=== PATIENT | male | born 1955 ===

== ENCOUNTER 2018-07-12 12:50 | Inpatient (IN) | payer SELFPAY ==
[~2018-07-12] VITALS: Ht 188 cm; Wt 95.3 kg
[2018-07-12 13:36] LABS: BASOPHILS % (AUTO) 0.5 % (0.0-2.0); EOSINOPHILS % (AUTO) 0.2 % (0.0-7.0); HEMATOCRIT 42.3 % (36.7-47.1); HEMOGLOBIN 14.9 g/dL (12.5-16.3); LYMPHOCYTES # (AUTO) 1.1 K/uL (20.0-40.0); LYMPHOCYTES % (AUTO) 16.8 % (20.5-51.5); MEAN CORPUSCULAR HEMOGLOBIN 32.4 uug (23.8-33.4); MEAN CORPUSCULAR HGB CONC 35 g/dL (32.5-36.3); MEAN CORPUSCULAR VOLUME 92.1 fL (73.0-96.2); MONOCYTES % (AUTO) 14.3 % (0.0-11.0); NEUTROPHILS # (AUTO) 4.6 K/uL (1.8-8.9); NEUTROPHILS % (AUTO) 68.2 % (38.5-71.5); PLATELET COUNT (AUTO) 207 K/uL (152-348); RED BLOOD CELL COUNT(AUTO) 4.59 MIL/uL (4.06-5.63); WHITE BLOOD COUNT (AUTO) 6.7 K/uL (3.6-10.2)
[2018-07-12 13:40] LABS: CREATININE 0.9 mg/dL (0.6-1.3)
[2018-07-12 13:46] LABS: BILIRUBIN,DIRECT 0.1 mg/dL (0.0-0.2); BILIRUBIN,TOTAL 0.5 mg/dL (0.2-1.0); TOTAL PROTEIN, SERUM 7.3 g/dL (6.4-8.2)
--- NOTE | 2018-07-12 14:10 | NUR ---
PATIENT BEING SEEN BY DOCTOR JU ALREADY.
--- NOTE | 2018-07-12 14:30 | NUR ---
PATIENT STATES HE HAS BEEN HEALTHY AND HAS NOT SEEN A DOCTOR SINCE THE
--- NOTE | 2018-07-12 15:44 | NUR ---
NEGATIVE ORTHOSTATIC BP. PATIENT STATES STILL FEELS LIGHT HEADED DIZZY UPON STANDING. WHILE LAYING DOWN FEELS FINE.
--- NOTE | 2018-07-12 15:51 | NUR ---
CALLED YVETTE MENDOZA RN FOR ADMISSION. TELE BED FOR SYNCOPE. DOCTOR MONTEMAYOR IS ADMITTING
[2018-07-12] MEDS ORDERED: MAGNESIUM HYDROXIDE 30 ML LIQUID UDC PO PRN ×2 (16:15→17:00)
[2018-07-12] MEDS ORDERED: ACETAMINOPHEN 325 MG TABLET PO PRN ×2 (16:15→17:00)
[2018-07-12] MEDS ORDERED: Z GUARD REMEDY PASTE 57 GM TUBE TOP PRN ×2 (16:15→17:00)
[2018-07-12] MEDS ORDERED: IV NS 1000 ML 1,000 ML IV SCH (16:15)
[2018-07-12] MEDS ORDERED: ONDANSETRON 4 MG/2 ML VIAL IV PRN ×2 (16:15→17:00)
[2018-07-12] MEDS ORDERED: HYDROCODONE/APAP 5-325MG TABLET PO PRN ×2 (16:15→17:00)
--- NOTE | 2018-07-12 16:24 | NUR ---
SPOKE TO ELIOT TILLMAN FOR REPORT. PLACED NEW IV ON PATIENT PRIOR TO ADMITTING
--- NOTE | 2018-07-12 17:09 | NUR ---
ADMITTED FROM HOME VIA ER WITH ADMITTING DX OF NEAR SYNCOPE SECONDARY TO GENERALIZED. AWAKE ALERT AND ORIENTED X3 NO SS OF SEVERE PAIN OR DISTRESS. ROUTINE ADMISSION ASSESSMENT INITIATED. DR MONTEMAYOR WILL BE NOTIFIED OF ADMISSION. SR ON MONITOR
[2018-07-12 17:31] VITALS: BP 114/57
[2018-07-12 17:34] VITALS: BP 94/55
[2018-07-12 17:35] VITALS: BP 100/63
[2018-07-12] MEDS: IV NS 1000 ML 1,000 ML IV SCH (18:17)
[2018-07-12 19:05] VITALS: BP 93/54
--- NOTE | 2018-07-12 19:45 | NUR ---
RECEIVED PATIENT IN BED, ALERT ORIENTED, NO SOB NO CHEST PAIN, TELE MONITOR SINUS RHYTHM AT THIS TIME. ASSISTED WITH TOILETING, CONT TO MONITOR.
[2018-07-12 23:41] VITALS: BP 99/54
[2018-07-13 03:29] VITALS: BP 99/63
--- NOTE | 2018-07-13 06:29 | NUR ---
PATIENT SLEPT MOST OF THE NIGHT, NO SOB NO CHEST PAIN NOTED, TELE MONITOR SINUS RHYTHM MOST OF THE NIGHT, WITH SHORT EPISODES OF AFIB BUT UNSUSTAINABLE, ASSESSED PATIENT FOR PAIN DISCOMFORT, CHEST PAIN, BUT SAID HE FEELS MARIA ELENA AT THIS TIME, WILL CONTINUE TO MONITOR, WILL ENDORSE TO NEXT SHIFT.
[2018-07-13] MEDS: IV NS 1000 ML 1,000 ML IV SCH (06:50)
--- NOTE | 2018-07-13 08:00 | NUR ---
Discussed plan of care with patient re: fall precaution, pain management, and to notify nursing for any c/o dizziness. Pt agreeable with plan of care. Call light is within reach.
[2018-07-13 10:20] LABS: EOSINOPHILS # (AUTO) 0.1 K/uL (0.0-0.7); HEMATOCRIT 38.7 % (36.7-47.1); HEMOGLOBIN 13.4 g/dL (12.5-16.3); LYMPHOCYTES # (AUTO) 1.3 K/uL (20.0-40.0); LYMPHOCYTES % (AUTO) 28.6 % (20.5-51.5); MEAN CORPUSCULAR HGB CONC 35 g/dL (32.5-36.3); MONOCYTES # (AUTO) 0.7 K/uL (2.0-10.0)
[2018-07-13 10:23] LABS: CREATININE 0.9 mg/dL (0.6-1.3); MAGNESIUM 1.8 mg/dL (1.8-2.4); PHOSPHOROUS 2.8 mg/dL (2.5-4.9)
[2018-07-13 10:34] LABS: BASOPHILS % (AUTO) 0.6 % (0.0-2.0); EOSINOPHILS % (AUTO) 1.7 % (0.0-7.0); MEAN CORPUSCULAR HEMOGLOBIN 32.7 uug (23.8-33.4); MEAN CORPUSCULAR VOLUME 94.3 fL (73.0-96.2); MONOCYTES % (AUTO) 14.3 % (0.0-11.0); NEUTROPHILS # (AUTO) 2.6 K/uL (1.8-8.9); NEUTROPHILS % (AUTO) 54.8 % (38.5-71.5); PLATELET COUNT (AUTO) 196 K/uL (152-348)
[2018-07-13 10:35] LABS: WHITE BLOOD COUNT (AUTO) 4.7 K/uL (3.6-10.2)
[2018-07-13 11:30] VITALS: BP 112/70
--- NOTE | 2018-07-13 13:00 | NUR ---
Dr Faria here to see patient. Per cardiology stand point pt is clear for discharge. Still awaiting neuro consult.
[2018-07-13 15:10] VITALS: BP 106/62
--- NOTE | 2018-07-13 18:00 | NUR ---
Spoke with Dr Anand re: pt adamant to leave and go home. Per Dr Anand pt still needs a neurology eval and wont be safe to go home. Explained to pt and relayed DR Villegas concern and the clearance from neurology.
--- NOTE | 2018-07-13 18:30 | NUR ---
Notified Dr Alegre of pt leaving AMA. Discussed with pt the risk of leaving AMA and to go ER for any emergency that can potentially happen due to no clearance from neurology. Pt aware of consequences and continues to want to leave AMA. Gave lab results, and imaging result, and DR alegre and DR chaidez progress notes. D/C IV. Call light is within reach.
== END 2018-07-13 18:30 | disposition left against medical advice (07) | DRG 641 ==
LOC: ER 12:53 → TELE 17:00
PROVIDERS: ADMIT Family Medicine; ATTEND Family Medicine
DX: E86.9 Volume depletion, unspecified (principal); G47.33 Obstructive sleep apnea (adult) (pediatric); I48.0 Paroxysmal atrial fibrillation; E87.1 Hypo-osmolality and hyponatremia; R73.9 Hyperglycemia, unspecified; R55 Syncope and collapse; Z87.891 Personal history of nicotine dependence; I49.3 Ventricular premature depolarization
CPT/HCPCS: 36415; 70030-TC; 70450; 83735; 84100; 85025; 93005; 93307; 93880; A4663; G0378; J7030